=== PATIENT | male | born 1995 | race Caucasian/White ===

== ENCOUNTER 2017-11-24 17:15 | Emergency (ER) | payer OTHER ==
[~2017-11-24] VITALS: Ht 167.6 cm; Wt 63.5 kg
[2017-11-24] MEDS ORDERED: LIDOCAINE 2% VISC SLN 15ML UDC PO ONE ×2 (17:30→18:05)
[2017-11-24] MEDS ORDERED: MAG HYD/AL HYD/SIMETH 30ML UDC PO ONE ×2 (17:30→18:05)
[2017-11-24] MEDS ORDERED: PANTOPRAZOLE SOD 40 MG IV VIAL IVP ONE ×2 (17:30→18:05)
--- NOTE | 2017-11-24 17:40 | ER Report ---
History and Physical Time Seen By MD: 17:24 Hx. of Stated Complaint: PT REPORTS HE WAS IN A HOTWING EATING CHALLENGE, "DIFFERENT FEELING/PAIN" IN [place] HPI/ROS CHIEF COMPLAINT: Left upper quadrant pain HISTORY OF PRESENT ILLNESS: This is a 22-year-old male who presents to the emergency department for left upper quadrant pain. Patient states that he was in a hot wing eating competition about an hour and a half ago, then approximately one hour ago he developed some severe left upper quadrant pain and epigastric pain. So much so he called EMS and was transported to the emergency department for evaluation. In route the patient did get 4 mg of IV morphine as well as 4 mg IV Zofran. Patient states that the pain is intermittent and severe at times. Patient has intermittent nausea associated with the pain. Patient denies aches, chills, vomiting, diarrhea, headaches, chest pain or shortness of breath. Patient appears very uncomfortable while I'm in the exam room. REVIEW OF SYSTEMS: Constitutional: No fever, no chills. Eyes: No discharge. ENT: No sore throat. Cardiovascular: No chest pain, no palpitations. Respiratory: No cough, no shortness of breath. Gastrointestinal: As above. Genitourinary: No hematuria. Musculoskeletal: No back pain. Skin: No rashes. Neurological: No headache. Allergies: Coded Allergies: No Known Drug Allergies (Unverified , 11/24/17) Home Meds Active Scripts Sucralfate (CARAFATE) 1 Gm Tablet, 1 GM PO QID, #60 TAB Take before meals and at bedtime. Crush the tablet and mix with water before taking. Prov:KENDRA PEACE INSURANCE LOSS CONTROL SURVEYOR- 11/24/17 Past Medical/Surgical History Patient has no significant past medical or surgical history. Reviewed Nurses Notes: Yes Constitutional Vital Sign - Last 24 Hours 11/24/17 11/24/17 11/24/17 11/24/17 17:17 17:21 17:30 17:45 Temp 98.3 Pulse 62 67 73 Resp 16 B/P (MAP) 146/93 (110) Pulse Ox 93 98 97 O2 Delivery Room Air 11/24/17 11/24/17 11/24/17 11/24/17 18:00 18:11 18:15 18:35 Pulse 57 66 61 B/P (MAP) 132/69 (90) Pulse Ox 95 98 93 11/24/17 11/24/17 11/24/17 11/24/17 18:50 19:05 19:20 19:35 Pulse 81 73 80 61 Pulse Ox 91 90 97 96 11/24/17 11/24/17 11/24/17 19:50 19:55 20:25 Pulse 66 67 87 Pulse Ox 94 95 95 Physical Exam General Appearance: The patient is alert, has no immediate need for airway protection and no signs of toxicity. Eyes: Pupils equal and round no pallor or injection. ENT, Mouth: Mucous membranes are moist. Respiratory: There are no retractions, lungs are clear to auscultation. Cardiovascular: Regular rate and rhythm, no murmurs, clicks or rubs. Gastrointestinal: Abdomen is soft and very tender to percussion to the left upper quadrant and epigastrium. Unintentional guarding. Hyperactive bowel sounds. Neurological: Alert and oriented 4. Moving all cherries. Following all commands. No focal neuro deficits. Skin: Warm and dry, no rashes. Musculoskeletal: Neck is supple non tender. Extremities are nontender, nonswollen and have full range of motion. DIFFERENTIAL DIAGNOSIS: After history and physical exam differential diagnosis was considered for abdominal pain including but not limited to appendicitis, cholecystitis, gastritis, ulcer and urinary tract infection. Medical Decision Making Data Points Result Diagram: 11/24/17 1721 11/24/17 1721 Laboratory Hematology Test 11/24/17 17:21 Red Blood Count 5.54 M/uL (4.00-5.60) Mean Corpuscular Volume 90.8 fL (80.0-96.0) Mean Corpuscular Hemoglobin 30.8 pg (26.0-33.0) Mean Corpuscular Hemoglobin Concent 33.9 g/dL (32.0-36.0) Red Cell Distribution Width 13.1 % (11.5-14.5) Mean Platelet Volume 8.3 fL (7.2-11.1) Neutrophils (%) (Auto) 69.5 % (39.4-72.5) Lymphocytes (%) (Auto) 21.1 % (17.6-49.6) Monocytes (%) (Auto) 6.7 % (4.1-12.4) Eosinophils (%) (Auto) 2.2 % (0.4-6.7) Basophils (%) (Auto) 0.5 % (0.3-1.4) Nucleated RBC Relative Count (auto) 0.0 /100WBC Neutrophils # (Auto) 8.1 K/uL (2.0-7.4) Lymphocytes # (Auto) 2.5 K/uL (1.3-3.6) Monocytes # (Auto) 0.8 K/uL (0.3-1.0) Eosinophils # (Auto) 0.3 K/uL (0.0-0.5) Basophils # (Auto) 0.1 K/uL (0.0-0.1) Nucleated RBC Absolute Count (auto) 0.00 K/uL Sodium Level 137 mmol/L (137-145) Potassium Level 3.3 mmol/L (3.5-5.0) Chloride Level 97 mmol/L (98-107) Carbon Dioxide Level 22 mmol/L (22-30) Blood Urea Nitrogen 18 mg/dl (9-21) Creatinine 1.20 mg/dl (0.66-1.25) Glomerular Filtration Rate Calc > 60.0 Random Glucose 96 mg/dl (75-110) Calcium Level 9.7 mg/dl (8.4-10.2) Total Bilirubin 0.6 mg/dl (0.2-1.3) Aspartate Amino Transf (AST/SGOT) 26 U/L (0-35) Alanine Aminotransferase (ALT/SGPT) 44 U/L (0-56) Alkaline Phosphatase 82 U/L (0-126) Total Protein 8.2 gm/dl (6.3-8.2) Albumin 4.8 g/dl (3.5-5.0) Chemistry Test 11/24/17 17:21 White Blood Count 11.7 k/uL (4.5-11.0) Red Blood Count 5.54 M/uL (4.00-5.60) Hemoglobin 17.1 g/dL (14.0-18.0) Hematocrit 50.3 % (42.0-52.0) Mean Corpuscular Volume 90.8 fL (80.0-96.0) Mean Corpuscular Hemoglobin 30.8 pg (26.0-33.0) Mean Corpuscular Hemoglobin Concent 33.9 g/dL (32.0-36.0) Red Cell Distribution Width 13.1 % (11.5-14.5) Platelet Count 283 K/uL (150-450) Mean Platelet Volume 8.3 fL (7.2-11.1) Neutrophils (%) (Auto) 69.5 % (39.4-72.5) Lymphocytes (%) (Auto) 21.1 % (17.6-49.6) Monocytes (%) (Auto) 6.7 % (4.1-12.4) Eosinophils (%) (Auto) 2.2 % (0.4-6.7) Basophils (%) (Auto) 0.5 % (0.3-1.4) Nucleated RBC Relative Count (auto) 0.0 /100WBC Neutrophils # (Auto) 8.1 K/uL (2.0-7.4) Lymphocytes # (Auto) 2.5 K/uL (1.3-3.6) Monocytes # (Auto) 0.8 K/uL (0.3-1.0) Eosinophils # (Auto) 0.3 K/uL (0.0-0.5) Basophils # (Auto) 0.1 K/uL (0.0-0.1) Nucleated RBC Absolute Count (auto) 0.00 K/uL Glomerular Filtration Rate Calc > 60.0 Calcium Level 9.7 mg/dl (8.4-10.2) Total Bilirubin 0.6 mg/dl (0.2-1.3) Aspartate Amino Transf (AST/SGOT) 26 U/L (0-35) Alanine Aminotransferase (ALT/SGPT) 44 U/L (0-56) Alkaline Phosphatase 82 U/L (0-126) Total Protein 8.2 gm/dl (6.3-8.2) Albumin 4.8 g/dl (3.5-5.0) [place]KG/Im[place] [facility] [place] Cody Nicolas : 1995 Visit/Account:[id number] Date of Sevice: 11/24/2017 Examination: ACUTE ABDOMEN SERIES 3 VIEW Comparison: None. History: severe epigastric pain Findings: Cardiac and hilar contour size is within normal limits. No consolidation, nodule, or peribronchial inflammation. No pneumothorax, edema, or effusion. No pneumoperitoneum. Small bowel gas pattern is unremarkable. Small to moderate amount stool in the colon. No evidence of mass effect or organomegaly in the abdomen. No soft tissue calcifications. Osseous structures are intact. IMPRESSION: 1. Negative chest. 2. Negative abdomen. Report Dictated By: Salú Stark MD at 11/24/2017 7:09 PM Report E-Signed By: Saúl Stark MD at 11/24/2017 7:12 PM WSN:[id number] [place] [facility] [place] Cody Nicolas : 1995 Visit/Account:[id number] Date of Sevice: 11/24/2017 EXAMINATION: CT abdomen and pelvis with contrast COMPARISON: None. HISTORY: Epigastric pain. PROCEDURE: Multiplanar contrast enhanced CT of the abdomen and pelvis with 75 mL intravenous Isovue 370. One of the following dose optimization techniques was utilized in the performance of this exam: Automated exposure control; adjustment of the mA and/or kV according to the patient's size; or use of an iterative reconstruction technique. Specific details can be referenced in the facility's radiology CT exam operational policy. FINDINGS: Visualized thorax: Negative. Liver: Negative. Gallbladder and biliary system: Negative Spleen: Spleen size is normal. Pancreas: Negative. Adrenal glands: Negative. Kidneys and bladder: No renal mass or evidence of an obstructive uropathy. Urinary bladder is unremarkable. Vessels: Within normal limits. Bowel and mesentery: Stomach is within normal limits. No small bowel obstruction. Appendix is unremarkable. Small amount of stool within the colon. No bowel or mesenteric inflammation. Pelvic organs: Negative. Lymph nodes: No adenopathy. Free air/free fluid: None. Abdominal wall and osseous structures: Negative. IMPRESSION: Negative CT abdomen and pelvis. Report Dictated By: Saúl Stark MD at 11/24/2017 8:23 PM Report E-Signed By: Saúl Stark MD at 11/24/2017 8:31 PM WSN:[id number] ED Course/Re-evaluation Clinical Indication for ER IV: IV Access ED Course The patient was admitted to room. History physical were obtained. Differential diagnoses were considered. A CBC, CMP were obtained. Lab studies unremarkable. A three-view abdomen showing no acute abnormalities. Patient was given a GI cocktail, IV Protonix, 4 mg IV Zofran, which has not been helping the patient's pain. Patient was also given 50 g of IV fentanyl. Patient states his pain is still elevated discussed an abdomen pelvis CT with the patient. CT of the abdomen and pelvis showing no acute abnormalities. I did review these results with the patient's is relieved that there is nothing acute. Patient states that his pain has improved. I did give patient some Carafate in the emergency department as I'm concerned with his chronic consumption of spicy foods maybe he has an ulcer that is developing developing. Patient was also sent home with prescription for Carafate. Patient was also instructed to follow up with one of the general surgeons for possible endoscopy. The patient had no other questions or concerns at this time and was discharged home. Patient was encouraged to return to the emergency department for any other concerns he may have. Decision to Disposition Date: Nov 24, 2017 Decision to Disposition Time: 21:01 Depart Departure Latest Vital Signs Vital Signs Date Time Temp Pulse Resp B/P (MAP) Pulse Ox O2 Delivery O2 Flow Rate FiO2 11/24/17 20:25 87 95 11/24/17 18:11 132/69 (90) 11/24/17 17:17 98.3 16 Room Air Impression: Primary Impression: Epigastric pain Condition: Improved Disposition: HOME OR SELF-CARE Referrals: YOSSI MALONEY MD,MARIANA Cano Sucralfate (CARAFATE) 1 Gm Tablet 1 GM PO QID, #60 TAB Take before meals and at bedtime. Crush the tablet and mix with water before taking. Prov: KENDRA PEACE 11/24/17 Patient Instructions: Epigastric Pain (ED) Additional Instructions: Drink plenty of water. Get plenty of rest. Take the Carafate as directed. Follow-up with one of the general surgeons for possible endoscopy to look for an ulcer. Follow-up with your primary care provider as needed. May return to the emergency department for any other concerns or worsening symptoms. KENDRA PEACE-BC Nov 24, 2017 17:40
[2017-11-24 18:01] LABS: PLATELET COUNT, AUTOMATED 283 K/uL (150-450)
[2017-11-24] MEDS ORDERED: ONDANSETRON 4 MG/2 ML VIAL IVP ONE (18:20)
[2017-11-24] MEDS ORDERED: fentaNYL CITR 100 MCG/2 ML AMP IVP ONE (18:50)
--- NOTE | 2017-11-24 19:15 | RADIOLOGY IMAGING REPORT ---
FACILITY: [facility] - [place] PATIENT NAME: Cody Nicolas : 1995 MR: [id number] V: [id number] EXAM DATE: ORDERING PHYSICIAN: KENDRA PEACE TECHNOLOGIST: Location: [facility] - [place] Patient: Cody Nicolas : 1995 Visit/Account:[id number] Date of Sevice: 11/24/2017 Examination: ACUTE ABDOMEN SERIES 3 VIEW Comparison: None. History: severe epigastric pain Findings: Cardiac and hilar contour size is within normal limits. No consolidation, nodule, or peribr onchial inflammation. No pneumothorax, edema, or effusion. No pneumoperitoneum. Small bowel gas pattern is unremarkable. Small to moderate amount stool in the c olon. No evidence of mass effect or organomegaly in the abdomen. No soft tissue calcifications. Osseous structures are intact. IMPRESSION: 1. Negative chest. 2. Negative abdomen. Report Dictated By: Saúl Stark MD at 11/24/2017 7:09 PM Report E-Signed By: Saúl Stark MD at 11/24/2017 7:12 PM WSN:[id number]
[2017-11-24] MEDS ORDERED: NS(*) 0.9% 10 ML VIAL 20 ML ONE (20:02)
[2017-11-24] MEDS ORDERED: IOPAMIDOL 76% 75 ML INFUS BTL 75 ML ONE (20:02)
--- NOTE | 2017-11-24 20:34 | RADIOLOGY IMAGING REPORT ---
[place] [facility] [place] Cody Nicolas : 1995 MR: [id number] V: [id number] EXAM DATE: ORDERING PHYSICIAN: KENDRA PEACE TECHNOLOGIST: Location: [facility] - [place] Patient: Cody Nicolas : 1995 Visit/Account:[id number] Date of Sevice: 11/24/2017 EXAMINATION: CT abdomen and pelvis with contrast COMPARISON: None. HISTORY: Epigastric pain. PROCEDURE: Multiplanar contrast enhanced CT of the abdomen and pelvis with 75 mL intravenous Isovue 3 70. One of the following dose optimization techniques was utilized in the performance of this exam: A utomated exposure control; adjustment of the mA and/or kV according to the patient's size; or use of an iterative reconstruction technique. Specific details can be referenced in the facility's radiolo gy CT exam operational policy. FINDINGS: Visualized thorax: Negative. Liver: Negative. Gallbladder and biliary system: Negative Spleen: Spleen size is normal. Pancreas: Negative. Adrenal glands: Negative. Kidneys and bladder: No renal mass or evidence of an obstructive uropathy. Urinary bladder is unrema rkable. Vessels: Within normal limits. Bowel and mesentery: Stomach is within normal limits. No small bowel obstruction. Appendix is unrem arkable. Small amount of stool within the colon. No bowel or mesenteric inflammation. Pelvic organs: Negative. Lymph nodes: No adenopathy. Free air/free fluid: None. Abdominal wall and osseous structures: Negative. IMPRESSION: Negative CT abdomen and pelvis. Report Dictated By: Saúl Stark MD at 11/24/2017 8:23 PM Report E-Signed By: Saúl Stark MD at 11/24/2017 8:31 PM [id number]
[2017-11-24] MEDS ORDERED: SUCRALFATE 1 GM TAB PO ONE (20:45)
[2017-11-24] MEDS ORDERED: SUCR1TAB85 PO (20:48)
[2017-11-24 20:53] VITALS: BP 125/67
== END 2017-11-24 21:00 | disposition home or self-care (01) ==
LOC: ER 17:38
DX: R10.13 Epigastric pain (principal)
CPT/HCPCS: 74022; 74177; 85025; 96374; 96375; 99284; C9113; J2405; J3010; Q9967; 82040; 82247; 82310; 82374; 82435; 82565; 82947; 84075; 84132; 84155; 84295; 84450; 84460; 84520

== ENCOUNTER → 2017-11-24 | Outpatient (CLI) | payer OTHER ==
[~2017-11-24] MED LIST: SUCR1TAB85 PO
== END ==
LOC: AMB 16:57
PROVIDERS: ATTEND Nurse Practitioner
DX: R10.12 Left upper quadrant pain (principal)
CPT/HCPCS: A0425; A0427